=== PATIENT | male | born 1990 | race African-American/Black ===

== ENCOUNTER 2016-08-09 00:01 | Emergency (ER) | payer MEDICAID, OTHER ==
[~2016-08-09] VITALS: Ht 180.3 cm; Wt 95.3 kg
[~2016-08-09 00:01] MED LIST: CIPRO500 MG PO; COLACE100 MG ORAL; FLEET ENEMA133 ML RECTAL; IBUPROFEN600 MG ORAL; MIRALAX17 G2 ORAL; NORCO 5-325 TA1 EACH ORAL
[2016-08-09 00:14] VITALS: BP 116/79
--- NOTE | 2016-08-09 00:21 | Emergency Room Report ---
History of Present Illness General Chief Complaint: Male Urogenital Problems Source: Patient Present Illness [facility] This 26-year-old male with no significant past medical history. He has a history of gonorrhea urethritis. He said he had a one nightstand out of town the condom broke. Now complaining of dysuria and discharge. Onset for about a day. No other symptom. No nausea no vomiting. Denies any other complaint. Allergies: Coded Allergies: No Known Allergies (Unverified , 10/22/13) Patient History Past Medical History: see triage record, old chart reviewed Past Surgical History: none Pertinent Family History: none Social History: Denies: smoking Immunizations: other Reviewed Nursing Documentation: PMH: Agreed, PSxH: Agreed Nursing Documentation-PMH Past Medical History: No Stated History Review of Systems Eye: Denies: blurred vision, eye pain ENT: Denies: ear pain, nose congestion, throat swelling Respiratory: Denies: cough, shortness of breath Cardiovascular: Denies: chest pain, palpitations Gastrointestinal: Denies: abdominal pain, diarrhea, nausea, vomiting Musculoskeletal: Denies: back pain, joint pain Skin: Denies: rash Neurological: Denies: headache, numbness Endocrine: Denies: increased thirst, increased urine Hematologic/Lymphatic: Denies: easy bruising All Other Systems: negative except mentioned in HPI Physical Exam Vital Signs Date Time Temp Pulse Resp B/P Pulse Ox O2 Delivery O2 Flow Rate FiO2 08/09/16 00:07 98.1 84 16 116/79 95 Room Air vitals normal Sp02 EP Interpretation: reviewed, normal General Appearance: well appearing, no apparent distress, alert Head: normocephalic, atraumatic Eyes: bilateral eye EOMI, bilateral eye PERRL ENT: hearing grossly normal, normal pharynx Neck: full range of motion, supple, no meningismus Respiratory: chest non-tender, lungs clear, normal breath sounds Cardiovascular #1: regular rate, rhythm, no murmur Gastrointestinal: normal bowel sounds, non tender, no mass, no organomegaly, no bruit, non-distended Genitourinary: other - No testicular tenderness. No penile tenderness. There is a clearish discharge. Patient is circumcised. Musculoskeletal: back normal, gait/station normal, normal range of motion Psychiatric: mood/affect normal Skin: warm/dry Medical Decision Making Diagnostic Impression: Primary Impression: Urethritis ER Course Patient with urethritis. Most likely secondary to Chlamydia. We'll treat for both Chlamydia and gonorrhea. No evidence of systemic spread. Recommend outpatient testing for HIV, hepatitis, syphilis, and other STDs. This can be done anonymously. Last Vital Signs Date Time Temp Pulse Resp B/P Pulse Ox O2 Delivery O2 Flow Rate FiO2 08/09/16 00:14 98.1 84 16 116/79 95 Room Air Status: improved Disposition: HOME, SELF-CARE Condition: Stable Patient Instructions: Urethritis, Adult Additional Instructions: Recommend outpatient testing for hepatitis, syphilis, HIV, and other STDs. This can be done anonymously. Followup with your Dr. in 7 days as needed. Return for any concern. AISHWARYA MATTHEWS M.D. Aug 09, 2016 00:21
[2016-08-09] MEDS ORDERED: Lidocaine 1% MPF 10mg/ml 5ml ONE (00:27)
[2016-08-09] MEDS ORDERED: Azithromycin 250mg tab ORAL ONE (00:30)
[2016-08-09 00:37] VITALS: BP 116/79
== END 2016-08-09 00:37 | disposition home or self-care (01) ==
LOC: EMR 00:22
DX: N34.2 Other urethritis (principal)
CPT/HCPCS: 96372; 99283; J0696; Q0144

== ENCOUNTER → 2018-05-17 | Emergency (ER) | payer SELFPAY ==
[~2018-05-17] VITALS: Ht 180.3 cm; Wt 99.8 kg
[~2018-05-17] MED LIST changes: +BACITRACIN-P28.35 GM TP; +HYDROXYZINE HCL25 M1 PO; +HydrOXYzine tab 25mg tab ORAL ONE; +PREDNISONE20 MG ORAL; +hiv meds
[2018-05-17 14:10] VITALS: BP 159/92
--- NOTE | 2018-05-17 14:35 | Emergency Room Report ---
History of Present Illness General Chief Complaint: Allergic Reaction Source: Patient Present Illness HPI 27-year-old male patient presents the ER complaining of "I think I had an allergic reaction". Reports that he was eating at [employer] earlier today when he began to experience itching symptoms and rash on his face. Denies shortness of breath. Denies history of allergies. Denies difficulty breathing. Denies vomiting. Denies fever. States he applied cool compresses for does not help alleviate symptoms. Reports rash on face is pruritic, denies pain or burning sensation. Denies other aggravating or relieving factors. Allergies: Coded Allergies: No Known Allergies (Unverified , 10/22/13) Patient History Past Medical History: see triage record Reviewed Nursing Documentation: PMH: Agreed; PSxH: Agreed Nursing Documentation-PMH Past Medical History: No History, Except For Hx Cardiac Problems: No - HIV Review of Systems All Other Systems: negative except mentioned in HPI Physical Exam Vital Signs Date Time Temp Pulse Resp B/P (MAP) Pulse Ox O2 Delivery O2 Flow Rate FiO2 05/17/18 14:10 98.2 90 18 159/92 95 Room Air Sp02 EP Interpretation: reviewed, normal General Appearance: well appearing, no apparent distress, alert, GCS 15, non- toxic Head: normocephalic, atraumatic Eyes: bilateral eye normal inspection, bilateral eye PERRL ENT: hearing grossly normal, normal pharynx, no angioedema, normal voice, uvula midline, moist mucus membranes Neck: full range of motion, no meningismus, no bony tend Respiratory: lungs clear, normal breath sounds, no rhonchi, no respiratory distress, no accessory muscle use, no wheezing, speaking full sentences, other - No stridor Musculoskeletal: back normal, digits/nails normal, gait/station normal, normal range of motion, non-tender Neurologic: alert, oriented x3, responsive, motor strength/tone normal, sensory intact Psychiatric: mood/affect normal Skin: other - Maculopapular rash on bilateral cheeks and surrounding lips, no surrounding erythema or edema, no drainage, no crusting Medical Decision Making PA Attestation Dr. Lara is my supervising Physician whom patient management has been discussed with. Diagnostic Impression: Primary Impression: Allergic reaction ER Course Pt. presents to the ED c/o "I think I had allergic reaction to food, complaining of itchy rash on face following eating food. Ddx considered but are not limited to allergic reaction, urticaria, anaphylaxis , bronchospasm, eczema.. Vital signs: are WNL, pt. is afebrile ER COURSE: Provide patient with prednisone and hydroxyzine in the ER. Reports itching symptoms improved. Signs and symptoms consistent with food allergy, advised patient follow with primary care provider for further evaluation and treatment care. Discussed referral to strategy specialist for testing. Lungs clear to auscultation, no wheezes rhonchi rales, no signs of anaphylaxis and patient does not complain of any breathing symptoms, okay for outpatient follow-up and treatment. ER precautions given. Take Claritin during the day and Benadryl at night for itching symptoms. Apply cool compresses. Provide patient with topical antibiotic to help prevent infection. Does not require oral antibiotics. DISCHARGE: At this time pt is stable for d/c to home. Patient is resting comfortably, in no acute distress, nontoxic appearing, talking without difficulty. Patient to take medications as instructed Will provide with patient care instructions and any necessary prescriptions. Care plan and follow-up instructions provided. Patient instructed to follow-up with primary care provider in 3 - 5 days. Patient questions asked and answered. Patient reports understanding and agreement to treatment plan. ER precautions given. Patient instructed to return to ER immediately for any new or worsening of symptoms including but not limited to increasing SOB, persistent fever, chest pain, intractable vomiting. - Please note that this Emergency Department Report was dictated using [employer] truck driver technology software, occasionally this can lead to erroneous entry secondary to interpretation by the dictation equipment. Last Vital Signs Date Time Temp Pulse Resp B/P (MAP) Pulse Ox O2 Delivery O2 Flow Rate FiO2 05/17/18 14:10 98.2 90 18 159/92 95 Room Air Status: improved Disposition: HOME, SELF-CARE Condition: Stable Scripts Bacitracin/Polymyxin B Sulfate (BACITRACIN-POLYMYXIN OINTMENT) 28.35 Gm Oint...g. 1 APPLIC TP BID, #28 GM Prov: Robert Cooper.[email or web address] 05/17/18 Hydroxyzine Hcl (HYDROXYZINE HCL) 25 Mg Tablet 25 MG PO DAILY, #15 TAB Prov: Robert Cooper.José Luis 05/17/18 Prednisone* (PREDNISONE*) 20 Mg Tablet 40 MG ORAL DAILY for 4 Days, #8 TAB Prov: Robert Cooper 05/17/18 Patient Instructions: Allergies, [id number], Allergy Test Additional Instructions: Followup with primary care provider in 3 -5 days. Follow-up with primary care provider discussed referral to strategy specialist. Take Claritin during the day and Benadryl at night for itching symptoms. Do not scratch or itch, apply cool compresses to affected area. Take medications as directed. Patient questions asked and answered. ER precautions given, patient instructed to return to ER immediately for any new or worsening of symptoms. Robert Cooper May 17, 2018 14:35
== END | disposition home or self-care (01) ==
LOC: EMR 14:42
DX: T78.40XA Allergy, unspecified, initial encounter (principal); X58.XXXA Exposure to other specified factors, initial encounter; R21 Rash and other nonspecific skin eruption
CPT/HCPCS: 99282; J7512